=== PATIENT | male | born 1985 | race Caucasian/White ===

== ENCOUNTER → 2016-10-08 | Outpatient (CLI) | payer BC ==
[~2016-10-08] VITALS: Ht 182.9 cm; Wt 117.9 kg
[~2016-10-08] MED LIST: CARAFATE1 GM PO; COLACE100 MG PO; DICYCLOMINE HCL10 MG PO; MELOXICAM7.5 MG PO; NOHOMEMEDS; PANTOPRAZOLE SO40 MG PO; PERCOCET 5/31 TABLET PO; SILVADENE20 GM TP
== END | disposition home or self-care (01) ==
LOC: AMB 11:59
PROC: 0DB68ZX Excision of Stomach, Via Natural or Artificial Opening Endoscopic, Diagnostic (ICD-10-PCS; principal; 2016-10-08)
DX: K29.90 Gastroduodenitis, unspecified, without bleeding (principal); K21.9 Gastro-esophageal reflux disease without esophagitis; K44.9 Diaphragmatic hernia without obstruction or gangrene; E66.9 Obesity, unspecified; Z68.36 Body mass index [BMI] 36.0-36.9, adult; Z87.891 Personal history of nicotine dependence
CPT/HCPCS: 88305; 88342 TC; J2250; J3010

== ENCOUNTER 2016-11-09 13:53 | Inpatient (IN) | payer BC ==
[~2016-11-09] VITALS: Ht 182.9 cm; Wt 109.9 kg
[~2016-11-09 13:53] MED LIST changes: +BENTYL20 MG PO; -DICYCLOMINE HCL10 MG PO
[2016-11-09 14:50] LABS: HEMATOCRIT 47.9 % (38.0-50.0); MCH 31.2 PG (29.0-34.0); MCHC 35.3 G/DL (30.0-36.0); MCV 88.5 FL (86-99); MEAN PLAT.VOLUME 10.9 uM^3 (9.0-12.4); PLATELET COUNT 278 K/uL (156-360); RBC DIS.WIDTH-CV 12.5 % (11.8-14.6); RBC DIS.WIDTH-SD 41.1 % (39-53); RED BLOOD COUNT 5.41 M/uL (4.00-5.50); WHITE BLOOD COUNT 7.9 K/uL (4.1-10.2)
[2016-11-09 15:03] LABS: CHLORIDE 103 mEq/L (99-109); POTASSIUM 3.8 mEq/L (3.7-5.4); SODIUM 136 mEq/L (136-147)
[2016-11-09 15:05] LABS: GLUCOSE 109 mg/dL (70-99)
[2016-11-09 15:07] LABS: ANION GAP 11 MEQ/L (2-14); TOTAL BILIRUBIN 6.9 mg/dL (0.0-1.0)
[2016-11-09 15:09] LABS: ALKALINE PHOSPHATASE 259 IU/L (3-129); GFR ESTIMATE (CALCULATED) > 59 mL/min/
[2016-11-09 15:10] LABS: UREA NITROGEN (BUN) 7 mg/dL (9-23)
[2016-11-09 15:12] LABS: LIPASE 11 U/L (1.0-51.0)
[2016-11-09 15:43] LABS: ADD MIUA? NO; BILIRUBIN MODERATE; BLOOD NEGATIVE; COLOR AMBER ((YELLOW)); GLUCOSE (STRIP) NEGATIVE; KETONES NEGATIVE; LEUKOCYTES NEGATIVE; NITRITE NEGATIVE; PROTEIN (STRIP) 30; SPECIFIC GRAVITY 1.028 (1.000-1.030); UCUL ADDED? NO
[2016-11-09 15:56] LABS: ICTOTEST POSITIVE
[2016-11-10 04:39] VITALS: BP 116/60
[2016-11-10 06:11] LABS: HEMATOCRIT 42.2 % (38.0-50.0); MCHC 34.8 G/DL (30.0-36.0); MCV 91.7 FL (86-99); MEAN PLAT.VOLUME 10.8 uM^3 (9.0-12.4); PLATELET COUNT 232 K/uL (156-360); RBC DIS.WIDTH-CV 13.1 % (11.8-14.6); RBC DIS.WIDTH-SD 44.2 % (39-53); WHITE BLOOD COUNT 5.1 K/uL (4.1-10.2)
[2016-11-10 08:07] VITALS: BP 110/68
[2016-11-10 09:16] LABS: PROTHROMBIN TIME 11.1 SEC (10.2-12.9)
[2016-11-10 09:19] LABS: PTT 27.5 SEC (25-37)
[2016-11-10 09:29] LABS: ALKALINE PHOSPHATASE 210 IU/L (3-129); TOTAL BILIRUBIN 6.1 MG/DL (0.0-1.0)
[2016-11-10 11:28] LABS: HBSG INDEX 0.17; HPCA INDEX 0.15
[2016-11-10 11:29] LABS: ANTI-HEPATITIS A VIRUS (IGM) Nonreactive; ANTI-HEPATITIS B CORE (IGM) Nonreactive; HAV INDEX 0.11; HBC IgM INDEX 0.06
[2016-11-10 12:26] VITALS: BP 117/62
[2016-11-10 16:28] VITALS: BP 107/65
[2016-11-10 20:12] VITALS: BP 107/69
[2016-11-11 00:10] VITALS: BP 131/66
[2016-11-11 07:34] LABS: HEMATOCRIT 42.3 % (38.0-50.0); MCH 31.2 PG (29.0-34.0); MCV 91.6 FL (86-99); MEAN PLAT.VOLUME 11.2 uM^3 (9.0-12.4); PLATELET COUNT 200 K/uL (156-360); RBC DIS.WIDTH-CV 12.9 % (11.8-14.6); RBC DIS.WIDTH-SD 43.6 % (39-53); RED BLOOD COUNT 4.62 M/uL (4.00-5.50); WHITE BLOOD COUNT 3.9 K/uL (4.1-10.2)
[2016-11-11 07:57] LABS: ALKALINE PHOSPHATASE 164 IU/L (3-129); ANION GAP 8 MEQ/L (2-14); CHLORIDE 107 MEQ/L (99-109); DIRECT BILIRUBIN 3.1 mg/dL (0.0-0.3); GFR ESTIMATE (CALCULATED) > 59 mL/min/; GLUCOSE 107 mg/dL (70-99); POTASSIUM 4.2 MEQ/L (3.7-5.4); SAMPLE HEMOLYSIS CHECK 0; SAMPLE ICTERIC CHECK 1; SAMPLE LIPEMIA CHECK 0; SODIUM 141 MEQ/L (136-147); UREA NITROGEN (BUN) 4 mg/dL (9-23)
[2016-11-11 07:58] LABS: TOTAL BILIRUBIN 4.7 MG/DL (0.0-1.0)
[2016-11-11 08:16] VITALS: BP 116/77
[2016-11-11 16:08] VITALS: BP 121/88
[2016-11-11 23:53] VITALS: BP 126/72
[2016-11-12 07:08] LABS: MCH 31.5 PG (29.0-34.0); MCHC 34.8 G/DL (30.0-36.0); MCV 90.5 FL (86-99); MEAN PLAT.VOLUME 11.7 uM^3 (9.0-12.4); PLATELET COUNT 216 K/uL (156-360); RBC DIS.WIDTH-CV 12.8 % (11.8-14.6); RBC DIS.WIDTH-SD 42.2 % (39-53); RED BLOOD COUNT 4.64 M/uL (4.00-5.50); WHITE BLOOD COUNT 8.6 K/uL (4.1-10.2)
[2016-11-12 07:34] VITALS: BP 123/58
[2016-11-12 07:35] LABS: ALKALINE PHOSPHATASE 167 IU/L (3-129); TOTAL BILIRUBIN 4.7 MG/DL (0.0-1.0)
[2016-11-12 07:37] LABS: ANION GAP 10 MEQ/L (2-14); CHLORIDE 105 MEQ/L (99-109); GFR ESTIMATE (CALCULATED) > 59 mL/min/; GLUCOSE 114 mg/dL (70-99); POTASSIUM 3.9 MEQ/L (3.7-5.4); SAMPLE HEMOLYSIS CHECK 0; SAMPLE ICTERIC CHECK 1; SAMPLE LIPEMIA CHECK 0; SODIUM 140 MEQ/L (136-147); UREA NITROGEN (BUN) 5 mg/dL (9-23)
[2016-11-12 16:43] VITALS: BP 161/95
[2016-11-12 19:33] VITALS: BP 137/87
[2016-11-13] VITALS: BP 148/85
[2016-11-13 06:38] LABS: MCH 30.8 PG (29.0-34.0); MCV 90.7 FL (86-99); MEAN PLAT.VOLUME 11.4 uM^3 (9.0-12.4); PLATELET COUNT 238 K/uL (156-360); RBC DIS.WIDTH-SD 43.2 % (39-53); RED BLOOD COUNT 4.96 M/uL (4.00-5.50); WHITE BLOOD COUNT 6.4 K/uL (4.1-10.2)
[2016-11-13 07:16] LABS: ALKALINE PHOSPHATASE 177 IU/L (3-129); ANION GAP 10 MEQ/L (2-14); CHLORIDE 104 MEQ/L (99-109); GFR ESTIMATE (CALCULATED) > 59 mL/min/; GLUCOSE 92 mg/dL (70-99); POTASSIUM 4.2 MEQ/L (3.7-5.4); SAMPLE HEMOLYSIS CHECK 0; SAMPLE ICTERIC CHECK 1; SAMPLE LIPEMIA CHECK 0; SODIUM 140 MEQ/L (136-147); UREA NITROGEN (BUN) 4 mg/dL (9-23)
[2016-11-13 07:17] LABS: TOTAL BILIRUBIN 5.7 MG/DL (0.0-1.0)
[2016-11-13 08:34] VITALS: BP 133/86
[2016-11-13 21:32] VITALS: BP 123/84
[2016-11-13 23:37] VITALS: BP 106/63
[2016-11-14 06:44] LABS: ALKALINE PHOSPHATASE 197 IU/L (3-129); ANION GAP 9 MEQ/L (2-14); CHLORIDE 102 MEQ/L (99-109); GFR ESTIMATE (CALCULATED) > 59 mL/min/; GLUCOSE 88 mg/dL (70-99); SAMPLE HEMOLYSIS CHECK 0; SAMPLE ICTERIC CHECK 2; SAMPLE LIPEMIA CHECK 0; SODIUM 139 MEQ/L (136-147); TOTAL BILIRUBIN 6.2 MG/DL (0.0-1.0); UREA NITROGEN (BUN) 6 mg/dL (9-23)
[2016-11-14 08:19] VITALS: BP 123/78
[2016-11-14 08:19] LABS: HEMATOCRIT 41.5 % (38.0-50.0); MCH 32.4 PG (29.0-34.0); MCHC 35.9 G/DL (30.0-36.0); MCV 90.2 FL (86-99); MEAN PLAT.VOLUME 11.3 uM^3 (9.0-12.4); PLATELET COUNT 204 K/uL (156-360); RBC DIS.WIDTH-SD 42.5 % (39-53); WHITE BLOOD COUNT 6.1 K/uL (4.1-10.2)
[2016-11-14 16:52] VITALS: BP 130/88
[2016-11-14 23:42] VITALS: BP 156/75
[2016-11-15 08:42] VITALS: BP 144/96
[2016-11-15 08:49] LABS: ALKALINE PHOSPHATASE 196 IU/L (3-129); ANION GAP 10 MEQ/L (2-14); CHLORIDE 104 MEQ/L (99-109); GFR ESTIMATE (CALCULATED) > 59 mL/min/; GLUCOSE 92 mg/dL (70-99); POTASSIUM 4.3 MEQ/L (3.7-5.4); SAMPLE HEMOLYSIS CHECK 1; SAMPLE ICTERIC CHECK 1; SAMPLE LIPEMIA CHECK 0; SODIUM 140 MEQ/L (136-147); TOTAL BILIRUBIN 5.5 MG/DL (0.0-1.0); UREA NITROGEN (BUN) 7 mg/dL (9-23)
[2016-11-15 16:22] VITALS: BP 117/79
[2016-11-15 23:37] VITALS: BP 132/83
[2016-11-16 06:57] LABS: ALKALINE PHOSPHATASE 204 IU/L (3-129); ANION GAP 10 MEQ/L (2-14); CHLORIDE 105 MEQ/L (99-109); GFR ESTIMATE (CALCULATED) > 59 mL/min/; GLUCOSE 110 mg/dL (70-99); POTASSIUM 4.1 MEQ/L (3.7-5.4); SAMPLE HEMOLYSIS CHECK 0; SAMPLE ICTERIC CHECK 1; SAMPLE LIPEMIA CHECK 0; SODIUM 139 MEQ/L (136-147); TOTAL BILIRUBIN 5.6 MG/DL (0.0-1.0); UREA NITROGEN (BUN) 8 mg/dL (9-23)
[2016-11-16 08:05] VITALS: BP 139/86
[2016-11-16 16:00] VITALS: BP 139/90
[2016-11-16 22:46] VITALS: BP 131/78
[2016-11-17 08:24] VITALS: BP 134/85
[2016-11-17 08:43] LABS: ANION GAP 12 MEQ/L (2-14); CHLORIDE 104 MEQ/L (99-109); POTASSIUM 4.4 MEQ/L (3.7-5.4); SAMPLE HEMOLYSIS CHECK 1; SAMPLE ICTERIC CHECK 1; SAMPLE LIPEMIA CHECK 0; SODIUM 138 MEQ/L (136-147); TOTAL BILIRUBIN 4.7 MG/DL (0.0-1.0)
[2016-11-17 08:48] LABS: ALKALINE PHOSPHATASE 212 IU/L (3-129); GFR ESTIMATE (CALCULATED) > 59 mL/min/; GLUCOSE 103 mg/dL (70-99); UREA NITROGEN (BUN) 10 mg/dL (9-23)
[2016-11-17 16:25] VITALS: BP 117/73
[2016-11-17] MEDS ORDERED: OXYCODONE HCL5 MG PO (16:32)
[2016-11-17] MEDS ORDERED: DOCUSATE SODIU100 MG PO ×2 (16:32→16:47)
[2016-11-17] MEDS ORDERED: ZOFRAN4 MG PO (16:32)
[2016-11-17] MEDS ORDERED: CHOLESTYRAMINE P4 GM PO (16:32)
[2016-11-17] MEDS ORDERED: ZOFRAN ODT4 MG PO (16:48)
== END 2016-11-17 18:34 | disposition home or self-care (01) | DRG 419 ==
LOC: EME 13:53 → EDOF 20:32 → 3EAST 20:32 → ENRESERV 20:33 → 3EAST 21:52
PROVIDERS: Emergency Medicine; Hospitalist; Internal Medicine; Internal Medicine Gastroenterology; Physician Assistant
DX: K80.63 Calculus of gallbladder and bile duct with acute cholecystitis with obstruction (principal); E86.0 Dehydration; K29.70 Gastritis, unspecified, without bleeding; K29.90 Gastroduodenitis, unspecified, without bleeding; R74.0 Nonspecific elevation of levels of transaminase and lactic acid dehydrogenase [LDH]; K21.9 Gastro-esophageal reflux disease without esophagitis; K44.9 Diaphragmatic hernia without obstruction or gangrene; K59.00 Constipation, unspecified; G43.909 Migraine, unspecified, not intractable, without status migrainosus; Z68.32 Body mass index [BMI] 32.0-32.9, adult; E66.9 Obesity, unspecified; Z87.891 Personal history of nicotine dependence
CPT/HCPCS: 74181; 74328; 76705; 80048; 80053; 80074; 80076; 81003; 82248; 83690; 85027; 85610; 85730; 87081; 88304; 99281; 99285; C1757; C1769; C9113; J0131; J0330; J0692; J1100; J1170; J1200; J1650; J1885; J2250; J2270; J2405; J2543; J2710; J3010; J7042; J7050

== ENCOUNTER → 2017-01-08 | Outpatient (CLI) | payer BC ==
[~2017-01-08] VITALS: Ht 182.9 cm; Wt 107.5 kg
[~2017-01-08] MED LIST changes: +CHOLESTYRAMINE P4 GM PO; +DOCUSATE SODIU100 MG PO; +OXYCODONE HCL5 MG PO; +ZOFRAN ODT4 MG PO; +ZOFRAN4 MG PO
== END | disposition home or self-care (01) ==
LOC: AMB 08:00
DX: K76.0 Fatty (change of) liver, not elsewhere classified (principal); K29.80 Duodenitis without bleeding; R76.8 Other specified abnormal immunological findings in serum; Z90.49 Acquired absence of other specified parts of digestive tract; R74.8 Abnormal levels of other serum enzymes; K21.9 Gastro-esophageal reflux disease without esophagitis; E66.9 Obesity, unspecified; Z68.37 Body mass index [BMI] 37.0-37.9, adult; D75.1 Secondary polycythemia; Z88.8 Allergy status to other drugs, medicaments and biological substances
CPT/HCPCS: 88305; 88307; 88313; 88342 TC; C1726; J0330; J2250; J2405; J3010